=== PATIENT | female | born 1970 | race Caucasian/White ===

== ENCOUNTER 2023-07-05 13:55 | Inpatient (IN) | payer OTHER ==
[~2023-07-05] VITALS: Ht 172.7 cm; Wt 154.2 kg
[2023-07-05 14:08] VITALS: BP 165/71; PULSE 75; RESP 16; TEMP 99; O2SAT 97
[2023-07-05] MEDS ORDERED: PIPERACILLIN/TAZOBACTAM 3.375 GM in DEXT 5% MINI-BAG PLUS 50 ML IV ONE (16:15)
[2023-07-05] MEDS ORDERED: NACL 0.9% 1,000 ML IV SCH (16:15)
[2023-07-05] MEDS ORDERED: PIPERACILLIN/TAZOBACTAM 3.375 GM VIAL IV ONE (16:49)
[2023-07-05 16:55] LABS: HEMATOCRIT 36.4 % (36-48); HEMOGLOBIN 11.6 g/dL (12.0-16.0); MEAN CORPUSCULAR HEMOGLOBIN 31 pg (27-31); MEAN CORPUSCULAR HGB CONC 32 g/dL (33-37); MEAN CORPUSCULAR VOLUME 96.4 fL (80-94); PLATELET COUNT (AUTO) 291 K/uL (140-450); RED BLOOD CELL COUNT(AUTO) 3.77 MIL/uL (4.20-5.40); RED CELL DISTRIBUTION WIDTH 15.6 % (11.6-13.7)
[2023-07-05 17:00] LABS: APPEARANCE,URINE CLEAR (CLEAR); BILIRUBIN,URINE NEGATIVE (NEGATIVE); BLOOD, URINE NEGATIVE (NEGATIVE); COLOR,URINE YELLOW (YELLOW); LEUKOCYTE ESTERASE ,URINE NEGATIVE (NEGATIVE); NITRITE, URINE NEGATIVE (NEGATIVE); PH,URINE 5.5 (5.0-9.0); PROTEIN,URINE NEGATIVE (NEGATIVE); UGLUCOSE NEGATIVE (NEGATIVE); UROBILINOGEN,URINE 0.2 EU/dL (0.2 - 1)
[2023-07-05 17:07] LABS: INR 0.9 (0.8-1.2); PARTIAL THROMBOPLASTIN TIME 21.9 secs (22-35.6); PROTHROMBIN TIME 9.4 secs (10.8-13.4)
[2023-07-05 17:12] LABS: LACTIC ACID 0.5 mmol/L (0.4-2.0)
[2023-07-05 17:20] LABS: WHITE BLOOD COUNT (AUTO) 58.9 K/uL (4.8-10.8)
[2023-07-05 17:30] LABS: ALBUMIN 3.9 g/dL (3.4-5.0); ANION GAP 12.7 (8-16); CALCIUM 9.6 mg/dL (8.5-10.1); CARBON DIOXIDE 29.3 mmol/L (21-32); CREATININE 0.9 mg/dL (0.6-1.3); TOTAL BILIRUBIN 0.5 mg/dL (0.0-1.0); TOTAL PROTEIN, SERUM 7.6 g/dL (6.4-8.2)
[2023-07-05 17:52] LABS: BASOPHILS % (MANUAL) 0 % (0-2); EOSINOPHILS % (MANUAL) 0 % (0-4); LYMPHOCYTES % (MANUAL) 85 % (20-46); MONOCYTES % (MANUAL) 2 % (5-12); PLATELET ESTIMATE ADEQUATE; SMUDGE CELLS FEW
[2023-07-05] MEDS ORDERED: POTASSIUM CHLORIDE 10 MEQ TABER PO PRN (19:50)
[2023-07-05] MEDS ORDERED: DOCUSATE SODIUM 100 MG GELCAP PO PRN (19:50)
[2023-07-05] MEDS ORDERED: ONDANSETRON 4 MG/2 ML VIAL IM/IVP PRN (19:50)
[2023-07-05] MEDS ORDERED: HYDROcodone/APAP 7.5/325 MG 1 TAB PO PRN (19:50)
[2023-07-05] MEDS ORDERED: ZOLPIDEM 5 MG TAB PO PRN (19:50)
[2023-07-05] MEDS ORDERED: ACETAMINOPHEN 325 MG TAB PO PRN (19:50)
[2023-07-05] MEDS ORDERED: guaiFENesin DM 200/20 MG-10 ML 10 ML UDC PO PRN (19:50)
[2023-07-05 20:47] LABS: CHOL/HDL RATIO 6.3 (1-4.5); FREE T4 (FREE THYROXINE) 1.12 ng/dL (0.76-1.46); PHOSPHORUS 3.7 mg/dL (2.5-4.9); THYROID STIMULATING HORMONE 30.92 uIU/mL (0.34-3.74)
[2023-07-05] MEDS ORDERED: METF-1139 PO (20:57)
[2023-07-05] MEDS ORDERED: FERR-212 PO (20:57)
[2023-07-05] MEDS ORDERED: LEVO0.3T5 PO (20:57)
[2023-07-05] MEDS ORDERED: SIMV-372 PO (20:57)
[2023-07-05] MEDS ORDERED: CIPR250S PO (20:57)
[2023-07-05 21:09] VITALS: BP 149/76; PULSE 75; PULSE 79; RESP 18; TEMP 97.6; O2SAT 96
[2023-07-05] MEDS: NACL 0.9% 1,000 ML IV SCH (22:16)
[2023-07-06] VITALS (7 sets, daily range): BP systolic 125–156; BP diastolic 52–72; PULSE 56–82; RESP 18; TEMP 97–99.5; O2SAT 92–96
[2023-07-06] MEDS ORDERED: PIPERACILLIN/TAZOBACTAM 3.375 GM VIAL IV ONE (04:00)
[2023-07-06] MEDS: PIPERACILLIN/TAZOBACTAM 3.375 GM in DEXTROSE 5% 50 ML IV SCH ×3 (04:08→20:18)
[2023-07-06 05:57] LABS: AMPHETAMINE, URINE NEGATIVE ng/ml (NEG <=1000); BARBITURATE, URINE NEGATIVE ng/ml (NEG <=200); BENZODIAZEPINE, URINE NEGATIVE ng/mL (NEG <=200); CANNABINOID, URINE NEGATIVE ng/mL (NEG <=50); COCAINE, URINE NEGATIVE ng/mL (NEG <=300); OPIATE, URINE NEGATIVE ng/mL (NEG <=2000); PHENCYCLIDINE SCREEN,URINE NEGATIVE ng/mL (NEG <=25)
[2023-07-06 06:35] LABS: HEMOGLOBIN 10.3 g/dL (12.0-16.0); MEAN CORPUSCULAR HEMOGLOBIN 31 pg (27-31); MEAN CORPUSCULAR HGB CONC 32 g/dL (33-37); MEAN CORPUSCULAR VOLUME 96.5 fL (80-94); PLATELET COUNT (AUTO) 257 K/uL (140-450); RED BLOOD CELL COUNT(AUTO) 3.32 MIL/uL (4.20-5.40); RED CELL DISTRIBUTION WIDTH 15.5 % (11.6-13.7)
[2023-07-06 06:58] LABS: CALCIUM 8.8 mg/dL (8.5-10.1)
[2023-07-06 07:52] LABS: WHITE BLOOD COUNT (AUTO) 50.9 K/uL (4.8-10.8)
[2023-07-06] MEDS: PANTOPRAZOLE 40 MG TABEC PO SCH (09:11)
[2023-07-06 10:06] LABS: MONOCYTES % (MANUAL) 11 % (5-12)
[2023-07-06 10:07] LABS: LYMPHOCYTES % (MANUAL) 72 % (20-46); SMUDGE CELLS FEW
[2023-07-06] MEDS: NACL 0.9% 1,000 ML IV SCH (12:30)
[2023-07-06] MEDS ORDERED: SIMVASTATIN 20 MG TAB PO SCH (21:00)
[2023-07-07] VITALS: BP 117/42; PULSE 70; PULSE 77; RESP 18; TEMP 97.3; O2SAT 98
[2023-07-07 00:36] LABS: FLU A ANTIGEN negative (NEGATIVE); FLU B ANTIGEN NEGATIVE (NEGATIVE)
[2023-07-07 04:00] VITALS: BP 134/56; PULSE 61; PULSE 63; RESP 18; TEMP 97.8; O2SAT 98
[2023-07-07] MEDS: PIPERACILLIN/TAZOBACTAM 3.375 GM in DEXTROSE 5% 50 ML IV SCH ×2 (04:08→13:29)
[2023-07-07] MEDS: NACL 0.9% 1,000 ML IV SCH (05:10)
[2023-07-07] MEDS ORDERED: CRUSHER, PILL MC ONE (05:47)
[2023-07-07] MEDS ORDERED: LEVOTHYROXINE 0.1 MG TAB PO SCH (06:30)
[2023-07-07 07:36] LABS: ANION GAP 11.3 (8-16); CALCIUM 8.7 mg/dL (8.5-10.1); CARBON DIOXIDE 29.4 mmol/L (21-32); POTASSIUM 3.7 mmol/L (3.5-5.1)
[2023-07-07 07:50] LABS: HEMATOCRIT 33.3 % (36-48); HEMOGLOBIN 10.7 g/dL (12.0-16.0); MEAN CORPUSCULAR HEMOGLOBIN 31 pg (27-31); MEAN CORPUSCULAR HGB CONC 32 g/dL (33-37); MEAN CORPUSCULAR VOLUME 96.3 fL (80-94); PLATELET COUNT (AUTO) 257 K/uL (140-450); RED BLOOD CELL COUNT(AUTO) 3.45 MIL/uL (4.20-5.40); RED CELL DISTRIBUTION WIDTH 15.7 % (11.6-13.7)
[2023-07-07 08:00] VITALS: BP 111/41; PULSE 60; PULSE 68; RESP 20; TEMP 97.5; O2SAT 98
[2023-07-07] MEDS ORDERED: FERROUS SULFATE 325 MG TABEC PO SCH (09:00)
[2023-07-07 09:07] LABS: T4 (THYROXINE) 10.2 ug/dL (4.5-12.0)
[2023-07-07] MEDS ORDERED: AMOX-999 PO (09:18)
[2023-07-07 09:21] LABS: BASOPHILS % (MANUAL) 0 % (0-2); EOSINOPHILS % (MANUAL) 0 % (0-4); LYMPHOCYTES % (MANUAL) 80 % (20-46); MONOCYTES % (MANUAL) 1 % (5-12)
[2023-07-07 09:22] LABS: HYPOCHROMASIA 1+; PLATELET ESTIMATE ADEQUATE
[2023-07-07] MEDS: PANTOPRAZOLE 40 MG TABEC PO SCH (10:05)
[2023-07-07 12:29] VITALS: BP 111/41; PULSE 68; RESP 20; TEMP 97.5
[2023-07-08 17:37] LABS: HEMOGLOBIN A1C 7.8 % (4.8-5.6)
== END 2023-07-07 14:50 | disposition home or self-care (01) | DRG 841 ==
LOC: MED 13:55 → MTU 19:19
PROVIDERS: ADMIT Family Medicine; ATTEND Family Medicine
DX: C95.90 Leukemia, unspecified not having achieved remission (principal); Z68.43 Body mass index [BMI] 50.0-59.9, adult; E66.01 Morbid (severe) obesity due to excess calories; R73.9 Hyperglycemia, unspecified; E78.2 Mixed hyperlipidemia; E86.0 Dehydration; E03.9 Hypothyroidism, unspecified; D63.8 Anemia in other chronic diseases classified elsewhere; Z20.822 Contact with and (suspected) exposure to COVID-19
CPT/HCPCS: 36415; 71045; 71275; 76536; 80048; 80053; 80305; 81003; 82150; 83036; 83605; 83690; 83735; 83880; 84100; 84436; 84439; 84443; 84479; 84484; 85025; 85379; 85610; 85730; 86886; 86900; 86901; 87040; 87070; 87081; 87086; 93005; 96365; 99285; J2543; J7060; Q0092; Q9967